=== PATIENT | female | born 1960 | race Caucasian/White ===

== ENCOUNTER → 2017-09-15 | Outpatient (CLI) | payer BC ==
[2017-09-15 10:12] LABS: BASO # 0.1 10^3/uL (0.0-0.2); EOS # 0.1 10^3/uL (0.0-0.50); EOS % 1.9 % (0.0-3.0); HEMATOCRIT 46.7 % (36.0-47.0); HEMOGLOBIN 15.1 g/dl (12.0-15.5); IMMATURE GRANULOCYTE % 0.4 % (0-3.0); LYMPH % 21.3 % (24.0-44.0); MEAN CORPUSCULAR HGB CONC 32.3 g/dl (32.0-36.5); MEAN CORPUSCULAR VOLUME 89.8 fl (80.0-96.0); MONO # 0.8 10^3/uL (0.0-0.8); MONO % 16.3 % (0.0-5.0); NEUTROPHILS # 2.8 10^3/uL (1.8-7.7); NEUTROPHILS % 59.1 % (36.0-66.0); PLATELET COUNT, AUTOMATED 216 10^3/uL (150-450); RED CELL DISTRIBUTION WIDTH 13.2 % (11.5-14.5); WHITE BLOOD COUNT 4.8 10^3/uL (4.0-10.0)
[2017-09-15 10:36] LABS: ANION GAP 9 MEQ/L (8-16); BLOOD UREA NITROGEN 10 MG/DL (7-18); CALCIUM LEVEL 8.6 MG/DL (8.5-10.1); CARBON DIOXIDE LEVEL 30 MEQ/L (21-32); CHLORIDE LEVEL 106 MEQ/L (98-107); CREATININE FOR GFR 0.67 MG/DL (0.55-1.30); GLOMERULAR FILTRATION RATE > 60.0 (>51); GLUCOSE, FASTING 83 MG/DL (70-100); POTASSIUM SERUM 4.2 MEQ/L (3.5-5.1); SODIUM LEVEL 145 MEQ/L (136-145)
== END ==
LOC: M LAB 09:02
DX: K09.0 Developmental odontogenic cysts (principal)
CPT/HCPCS: 71046

== ENCOUNTER → 2017-12-21 | Outpatient (CLI) | payer BC ==
[~2017-12-21] MED LIST: PROHANCE 279.3MG/ML 5ML VIAL (A9576) As Ordered
== END ==
LOC: M RAD 09:54
DX: D16.5 Benign neoplasm of lower jaw bone (principal); Z98.890 Other specified postprocedural states
CPT/HCPCS: A9576

== ENCOUNTER → 2018-03-21 | Outpatient (REF) | payer BC | LOC: M SFHCLERA 14:24 | PROVIDERS: ATTEND Nurse Practitioner Family | DX: J02.9 Acute pharyngitis, unspecified (principal) ==

== ENCOUNTER → 2018-11-01 | Outpatient (REF) | payer BC ==
[~2018-11-01] MED LIST changes: +CALC600C3 PO; +MULTCAP PO; -PROHANCE 279.3MG/ML 5ML VIAL (A9576) As Ordered
[2018-11-01 17:19] LABS: ALBUMIN 3.9 GM/DL (3.2-5.2); ALT/SGPT 22 U/L (12-78); BASO # 0.1 10^3/uL (0.0-0.2); BASO % 0.9 % (0.0-1.0); BILIRUBIN,TOTAL 0.4 MG/DL (0.2-1.0); BLOOD UREA NITROGEN 7 MG/DL (7-18); CALCIUM LEVEL 9.5 MG/DL (8.8-10.2); CARBON DIOXIDE LEVEL 28 MEQ/L (21-32); CHLORIDE LEVEL 106 MEQ/L (98-107); CHOLESTEROL LEVEL 185 MG/DL (<200); CHOLESTEROL RISK RATIO 2.151 (<5); CREATININE FOR GFR 0.63 MG/DL (0.55-1.30); EOS % 0.8 % (0.0-3.0); GLOMERULAR FILTRATION RATE > 60.0 (>45); GLUCOSE, FASTING 79 MG/DL (70-100); HDL CHOLESTEROL 86 MG/DL (>40); HEMATOCRIT 48.6 % (36.0-47.0); HEMOGLOBIN 15.5 g/dl (12.0-15.5); LDL CHOLESTEROL 84 MG/DL (<100); LYMPH # 0.7 10^3/uL (1.5-5.0); LYMPH % 13.8 % (24.0-44.0); MEAN CORPUSCULAR HEMOGLOBIN 29.9 pg (27.0-33.0); MEAN CORPUSCULAR HGB CONC 31.9 g/dl (32.0-36.5); MEAN CORPUSCULAR VOLUME 93.8 fl (80.0-96.0); MONO # 0.6 10^3/uL (0.0-0.8); MONO % 11.5 % (0.0-5.0); NEUTROPHILS # 3.9 10^3/uL (1.5-8.5); NEUTROPHILS % 72.6 % (36.0-66.0); NON-HDL-C 99 MG/DL; PLATELET COUNT, AUTOMATED 237 10^3/uL (150-450); POTASSIUM SERUM 4.7 MEQ/L (3.5-5.1); RED BLOOD COUNT 5.18 10^6/uL (4.00-5.40); SODIUM LEVEL 141 MEQ/L (136-145); TOTAL PROTEIN 6.6 GM/DL (6.4-8.2); TRIGLYCERIDES LEVEL 74 MG/DL (<150); WHITE BLOOD COUNT 5.3 10^3/uL (4.0-10.0)
== END ==
LOC: M SFHCLERA 10:08
PROVIDERS: ATTEND Nurse Practitioner Family
DX: Z00.00 Encounter for general adult medical examination without abnormal findings (principal); Z13.220 Encounter for screening for lipoid disorders

== ENCOUNTER → 2019-01-04 | Outpatient (CLI) | payer BC ==
--- NOTE | 2019-01-04 20:01 | REP ---
CT chest without contrast: Low-dose screening exam. History: Tobacco use. Comparison chest x-ray is from September 15, 2017. CT findings: There are several small air cysts scattered in the right middle and lower lobe. There is a 4 mm nodule in the left upper lobe on page 28 of 114 in series 201 of today's study. This is not visibly calcified. There is no other visible nodule or mass lesion in the lung parenchyma. Some vascular calcification is observed. The study is otherwise unremarkable. Impression: Lung RADS category II benign appearance. 4 mm nodule left upper lobe. Repeat screening CT study recommended 1 year. Electronically Signed by Norberto Harvey MD 01/05/2019 09:47 A
== END ==
LOC: M RAD 15:31
PROVIDERS: ATTEND Nurse Practitioner Family
DX: Z12.2 Encounter for screening for malignant neoplasm of respiratory organs (principal); R91.8 Other nonspecific abnormal finding of lung field; F17.219 Nicotine dependence, cigarettes, with unspecified nicotine-induced disorders

== ENCOUNTER → 2019-02-04 | Outpatient (CLI) | payer BC ==
--- NOTE | 2019-02-04 14:32 | REPMRS ---
Patient History The patient states she has not had a clinical breast exam in over a year. Family history of breast cancer at age 50 or over in paternal grandmother. Digital Woman Screen Mammo: February 04, 2019 - Exam #: [id number] Bilateral CC and MLO view(s) were taken. Technologist: Hannah Schreiber, Technologist Prior study comparison: December 21, 2012, digital woman screen mammo performed at [facility]. August 05, 2005, bilateral mammogram, performed at [facility] ([facility] FINDINGS: The breast tissue is heterogeneously dense. This may lower the sensitivity of mammography. There is a moderate amount of heterogeneously dense fibroglandular tissue which is fairly symmetric. There is no interval development of dominant mass, architectural distortion, or grouped microcalcification typical of malignancy. There has been no change in the appearance of the mammogram from the prior studies. 3-D tomosynthesis shows no additional findings. Assessment: BI-RADS/ACR category 1 mammogram. Negative Mammogram. Recommendation Routine screening mammogram of both breasts in 1 year (for women over age 40). This patient's Lifetime Breast Cancer RIsk is estimated at 4.7 %. This mammogram was interpreted with the aid of an FDA-approved computer-aided dectection system. Electronically Signed By: Kai Harvey MD 02/04/19 0208
--- NOTE | 2019-02-10 13:36 | DEXA ---
AP SPINE L1 - L4 1.003 -1.5 -0.3 LT FEMUR TOTAL 0.697 -2.5 -1.5 LT NECK 0.705 -2.4 -1.1 RT FEMUR TOTAL 0.667 -2.7 -1.7 RT NECK 0.695 -2.5 -1.2 TOTAL BODY TOTAL OTHER COMMENTS: There is low bone density of the spine and hips. The decreased density of the spine does represent a significant change. The decreased density of the left hip does represent a signature change. The decreased density of the right hip does represent a signature change. The density of the spine has decreased 19.8% since the initial exam on 06/06/1999. The spine density has decreased 5.6% since the most recent exam on 12/21/2012. The density of the left hip has decreased 29.5% since the initial exam on 06/06/1999. The density of the left hip has decreased 12.7% since the most recent exam on 12/21/2012. The density of the right hip has decreased 31.4% since the initial exam on 06/06/1999. The density of the right hip has decreased 14.5% since the most recent exam on 12/21/2012. FOLLOW-UP: Recommendation for the next bone density exam: 2 years. JARVIS
== END ==
LOC: M WHC 12:54
PROVIDERS: ATTEND Nurse Practitioner Family
DX: Z12.31 Encounter for screening mammogram for malignant neoplasm of breast (principal); Z13.820 Encounter for screening for osteoporosis

== ENCOUNTER 2019-03-07 08:37 | Day surgery (SDC) | payer BC ==
[~2019-03-07] VITALS: Ht 160 cm; Wt 40.4 kg
[~2019-03-07 08:37] MED LIST changes: +LIDOCAINE 2% INJ 100 MG/5 ML SDV (FOR ANES.) As Ordered ONE; +NS 1,000 ML IV ONE; +propofoL 200 MG/20 ML VIAL As Ordered ONE
--- NOTE | 2019-03-07 10:10 | ROOR ---
Patient Name: Tracey Rosen Procedure Date: 03/07/2019 9:31 AM Date of : 1960 Age: 58 Room: [facility] Gender: Female Note Status: Finalized Procedure: Colonoscopy Indications: High risk colon cancer surveillance: Personal history of colonic polyps Providers: Carlos Pablo MD Referring MD: Florence CELAYA Requesting Provider: Medicines: Monitored Anesthesia Care Complications: No immediate complications. Procedure: Pre-Anesthesia Assessment: - Prior to the procedure, a History and Physical was performed, and patient medications and allergies were reviewed. The patient is competent. The risks and benefits of the procedure and the sedation options and risks were discussed with the patient. All questions were answered and informed consent was obtained. Patient identification and proposed procedure were verified by the physician, the nurse and the anesthesiologist in the procedure room. Mental Status Examination: alert and oriented. Airway Examination: normal oropharyngeal airway and neck mobility. Respiratory Examination: clear to auscultation. CV Examination: normal. Prophylactic Antibiotics: The patient does not require prophylactic antibiotics. Prior Anticoagulants: The patient has taken no previous anticoagulant or antiplatelet agents. ASA Grade Assessment: II - A patient with mild systemic disease. After reviewing the risks and benefits, the patient was deemed in satisfactory condition to undergo the procedure. The anesthesia plan was to use monitored anesthesia care (MAC). Immediately prior to administration of medications, the patient was re-assessed for adequacy to receive sedatives. The heart rate, respiratory rate, oxygen saturations, blood pressure, adequacy of pulmonary ventilation, and response to care were monitored throughout the procedure. The physical status of the patient was re-assessed after the procedure. The Colonoscope was introduced through the anus and advanced to the terminal ileum, with identification of the appendiceal orifice and IC valve. The colonoscopy was performed without difficulty. The patient tolerated the procedure well. The quality of the bowel preparation was fair except the ascending colon was poor. The terminal ileum, ileocecal valve, appendiceal orifice, and rectum were photographed. Scope insertion time was 2 minutes. Scope withdrawal time was 9 minutes. The total duration of the procedure was 11 minutes. Findings: The perianal and digital rectal examinations were normal. The terminal ileum appeared normal. Four sessile polyps were found in the transverse colon and cecum. The polyps were 5 to 8 mm in size. These polyps were removed with a cold snare. Resection and retrieval were complete. Verification of patient identification for the specimen was done by the physician and nurse using the patient's name, date and medical record number. Estimated blood loss was minimal. A 12 mm polyp was found in the recto-sigmoid colon. The polyp was semi-sessile. The polyp was removed with a hot snare. Resection and retrieval were complete. Multiple small and large-mouthed diverticula were found from sigmoid to descending colon. There was no evidence of diverticular bleeding. Non-bleeding external and internal hemorrhoids were found during retroflexion. The hemorrhoids were medium-sized. Impression: - The examined portion of the ileum was normal. - Four 5 to 8 mm polyps in the transverse colon and in the cecum, removed with a cold snare. Resected and retrieved. - One 12 mm polyp at the recto-sigmoid colon, removed with a hot snare. Resected and retrieved. - Moderate diverticulosis from sigmoid to descending colon. There was no evidence of diverticular bleeding. - Non-bleeding external and internal hemorrhoids. Recommendation: - Patient has a contact number available for emergencies. The signs and symptoms of potential delayed complications were discussed with the patient. Return to normal activities tomorrow. Written discharge instructions were provided to the patient. - High fiber diet. - Continue present medications. - Await pathology results. - Repeat colonoscopy in 1 year because the bowel preparation was suboptimal and for surveillance based on pathology results. - Telephone GI clinic for pathology results in 2 weeks. - Return to GI clinic in 1 year. - Return to primary care physician. Carlos Pablo MD Carlos Pablo MD 03/07/2019 10:09:28 AM Electronically signed by Carlos Pablo MD Number of Addenda: 0 Note Initiated On: 03/07/2019 9:31 AM Estimated Blood Loss: Estimated blood loss was minimal.
[2019-03-07 10:46] VITALS: BP 115/65
== END 2019-03-07 10:49 | disposition home or self-care (01) ==
LOC: M OPP 08:37
PROVIDERS: ATTEND Internal Medicine Gastroenterology
DX: Z12.11 Encounter for screening for malignant neoplasm of colon (principal); Z86.010 Personal history of colon polyps; K64.8 Other hemorrhoids; D12.3 Benign neoplasm of transverse colon; D12.0 Benign neoplasm of cecum; D12.7 Benign neoplasm of rectosigmoid junction; K57.30 Diverticulosis of large intestine without perforation or abscess without bleeding; F17.210 Nicotine dependence, cigarettes, uncomplicated

== ENCOUNTER 2019-06-15 11:02 | Emergency (ER) | payer BC ==
[~2019-06-15] VITALS: Ht 160 cm; Wt 41.1 kg
[~2019-06-15 11:02] MED LIST changes: -LIDOCAINE 2% INJ 100 MG/5 ML SDV (FOR ANES.) As Ordered ONE; -NS 1,000 ML IV ONE; -propofoL 200 MG/20 ML VIAL As Ordered ONE
[2019-06-15 11:34] LABS: BASO % 0.6 % (0.0-1.0); EOS # 0.1 10^3/uL (0.0-0.5); EOS % 1.4 % (0.0-3.0); HEMATOCRIT 52.6 % (36.0-47.0); HEMOGLOBIN 16.8 g/dl (12.0-15.5); LYMPH # 1.3 10^3/uL (1.5-5.0); LYMPH % 18.1 % (24.0-44.0); MEAN CORPUSCULAR HEMOGLOBIN 29.2 pg (27.0-33.0); MEAN CORPUSCULAR HGB CONC 31.9 g/dl (32.0-36.5); MEAN CORPUSCULAR VOLUME 91.5 fl (80.0-96.0); MONO # 0.9 10^3/uL (0.0-0.8); MONO % 12.4 % (0.0-5.0); NEUTROPHILS # 4.8 10^3/uL (1.5-8.5); NEUTROPHILS % 67.1 % (36.0-66.0); PLATELET COUNT, AUTOMATED 251 10^3/uL (150-450); RED BLOOD COUNT 5.75 10^6/uL (4.00-5.40); WHITE BLOOD COUNT 7.2 10^3/uL (4.0-10.0)
[2019-06-15] MEDS ORDERED: ONDANSETRON 4MG/2ML VIAL IV ONE (12:00)
[2019-06-15] MEDS ORDERED: NS 500 ML IV ONE (12:00)
[2019-06-15 12:04] LABS: ALBUMIN 3.7 GM/DL (3.2-5.2); ALT/SGPT 28 U/L (12-78); BILIRUBIN,DIRECT 0.2 MG/DL (0.0-0.2); BILIRUBIN,TOTAL 0.6 MG/DL (0.2-1.0); BLOOD UREA NITROGEN 9 MG/DL (7-18); CALCIUM LEVEL 9.7 MG/DL (8.8-10.2); CARBON DIOXIDE LEVEL 29 MEQ/L (21-32); CHLORIDE LEVEL 103 MEQ/L (98-107); CREATININE FOR GFR 0.74 MG/DL (0.55-1.30); GLOMERULAR FILTRATION RATE > 60.0 (>45); GLUCOSE, FASTING 107 MG/DL (70-100); LIPASE 147 U/L (73-393); POTASSIUM SERUM 4.9 MEQ/L (3.5-5.1); SODIUM LEVEL 138 MEQ/L (136-145)
[2019-06-15] MEDS: GASTROGRAFIN SOLUTION 30ML PO SCH ×2 (12:36→13:13)
[2019-06-15 12:52] LABS: INR 0.96; PARTIAL THROMBOPLASTIN TIME 30.1 SECONDS (25.0-38.4); PROTHROMBIN TIME 12.5 SECONDS (11.8-14.0)
[2019-06-15] MEDS ORDERED: ISOVUE-370 76% 100ML VIAL As Ordered ONE (13:58)
[2019-06-15] MEDS ORDERED: ONDA4TAB6 PO (14:39)
--- NOTE | 2019-06-15 15:13 | REP ---
REASON: Right lower quadrant pain. COMPARISON: None. CONTRAST: 100 mL of Isovue 370. The lung bases are clear. The liver, gallbladder, spleen, pancreas, adrenal glands and kidneys are within normal limits. Incidental note is made of subcentimeter sized cyst in the medial segment of the left lobe of the liver. The abdominal aorta and paraaortic regions are within normal limits for the patient's age. Calcific atherosclerotic change is seen in abdominal aorta. There is no free fluid or free air in the abdomen or pelvis. The intra-abdominal and intrapelvic bowel loops and their mesenteries are within normal limits. There are a few scattered gas-filled nondilated small bowel loops in the lower abdomen and within the pelvis in a nonspecific fashion. There is no evidence of an intra-abdominal or intrapelvic mass or adenopathy. The patient is status post appendectomy. Bone window technique throughout the exam shows the osseous structures to be within normal limits. IMPRESSION: CT findings are within normal limits. There is a possible slight small bowel ileus. Electronically Signed by Juan Garnett DO 06/15/2019 03:31 P
[2019-06-15 15:36] VITALS: BP 115/67
== END 2019-06-15 15:37 | disposition home or self-care (01) ==
LOC: M ED 11:02
DX: K56.7 Ileus, unspecified (principal); R11.0 Nausea; K57.92 Diverticulitis of intestine, part unspecified, without perforation or abscess without bleeding; F17.200 Nicotine dependence, unspecified, uncomplicated; Z79.899 Other long term (current) drug therapy
CPT/HCPCS: 74177; 80048; 80076; 81001; 83605; 83690; 85025; 85610; 85730; 87040; 96374; 99284; J2405; Q9963; Q9967

== ENCOUNTER → 2019-06-21 | Outpatient (REF) | payer BC ==
[~2019-06-21] MED LIST changes: +ONDA4TAB6 PO
[2019-06-21 11:03] LABS: AMORPHOUS SEDIMENT LARGE (NEGATIVE); APPEARANCE, URINE TURBID (CLEAR); BACTERIA, URINE AUTO NEGATIVE (NEGATIVE); BILIRUBIN, URINE AUTO NEGATIVE (NEGATIVE); BLOOD, URINE BLOOD 1+ (NEGATIVE); COLOR, URINE AMBER (YELLOW); GLUCOSE, URINE (UA) AUTO NEGATIVE (NEGATIVE); KETONE, URINE AUTO NEGATIVE (NEGATIVE); LEUKOCYTE ESTERASE, URINE AUTO NEGATIVE (NEGATIVE); MUCUS, URINE SMALL (NEGATIVE); NITRITE, URINE AUTO NEGATIVE (NEGATIVE); PROTEIN, URINE AUTO NEGATIVE (NEGATIVE); RBC, URINE AUTO 0 /HPF (0-3); SPECIFIC GRAVITY URINE AUTO 1.013 (1.002-1.035); SQUAMOUS EPITHELIAL CELL UR AU 1 /HPF (0-6); UROBILINOGEN, URINE AUTO 0.2 mg/dL (0.0-2.0); WBC, URINE AUTO 0 /HPF (0-3)
[2019-06-21 11:04] LABS: BASO # 0.1 10^3/uL (0.0-0.2); BASO % 0.9 % (0.0-1.0); EOS # 0.1 10^3/uL (0.0-0.5); EOS % 1.5 % (0.0-3.0); HEMATOCRIT 48.5 % (36.0-47.0); HEMOGLOBIN 15.3 g/dl (12.0-15.5); LYMPH % 15.7 % (24.0-44.0); MEAN CORPUSCULAR HGB CONC 31.5 g/dl (32.0-36.5); MEAN CORPUSCULAR VOLUME 91.9 fl (80.0-96.0); MONO # 0.9 10^3/uL (0.0-0.8); MONO % 13.4 % (0.0-5.0); NEUTROPHILS # 4.5 10^3/uL (1.5-8.5); NEUTROPHILS % 68.2 % (36.0-66.0); PLATELET COUNT, AUTOMATED 259 10^3/uL (150-450); RED BLOOD COUNT 5.28 10^6/uL (4.00-5.40); WHITE BLOOD COUNT 6.6 10^3/uL (4.0-10.0)
== END ==
LOC: M SFHCLERA 08:11
PROVIDERS: ATTEND Family Medicine
DX: R31.9 Hematuria, unspecified (principal); D75.1 Secondary polycythemia

== ENCOUNTER → 2019-07-05 | Outpatient (REF) | payer BC ==
[2019-07-05 15:03] LABS: FREE T4 1.25 NG/DL (0.76-1.46); THYROID STIMULATING HORMONE 0.709 uIU/ML (0.358-3.740)
[2019-07-06 07:49] LABS: H PYLORI QUALITATIVE IgG NEGATIVE (NEGATIVE)
== END ==
LOC: M SFHCPLAZ 12:44
PROVIDERS: ATTEND Physician Assistant Medical
DX: R11.2 Nausea with vomiting, unspecified (principal); R10.13 Epigastric pain

== ENCOUNTER → 2019-07-28 | Outpatient (CLI) | payer BC ==
[~2019-07-28] MED LIST changes: +E-Z-GAS II EFFERVESCENT PACKET (SODIUM BICARB./CITRIC ACID/SIMETHICONE) As Ordered ONE; +E-Z-HD 98% w/w 340GM SUSP BTL As Ordered ONE; +E-Z-PAQUE 96% w/w SUSP 176GM BTL As Ordered ONE
--- NOTE | 2019-08-10 16:53 | REP ---
UPPER GI AIR CONTRAST AND SMALL BOWEL FOLLOW THROUGH: The procedure was performed under the direct supervision of Dr. Sarkar. The images were reviewed with Dr. Sarkar. The dehydrator film shows no organomegaly or pathological masses. The intestinal gas pattern is nonspecific. There are vascular calcifications identified. Liquid barium and gas-producing granules were given in the erect position as well as liquid barium in the prone oblique position in order to perform a double-contrast upper GI examination. Additionally, liquid barium was given at the end of the examination in order to perform a small bowel follow through. The oral and pharyngeal stages of deglutition are unremarkable. Esophageal transport is prompt and efficient and there is no esophagitis or stricture, mucosal ring, or hiatal hernia. Gastroesophageal reflux is not demonstrated on this examination. Within the stomach, there are prominent areas of gastricum which may represent early gastritis. There is no cyril ulcer identified. The stomach is otherwise unremarkable. In the pylorus, there is an ulcer. There are thickened folds in the duodenum which likely represent duodenitis. There is a diverticulum identified in the distal portion of the duodenum. The visualized portions of the proximal small bowel appears normal in course and caliber. The barium column was followed to the small bowel to the level of the terminal ileum. Small bowel transit time is approximately 3 hours. During fluoroscopy time, gentle palpation shows all loops are freely movable and pliable. There are no fixed triangulated loops. There is a diverticulum seen in the distal portion of the duodenum. The small bowel mucosal pattern is normal in course and caliber. There is no transition to suggest a partial small bowel obstruction. Spot filming of the terminal ileus shows it to be unremarkable. IMPRESSION: 1. Prominent area of gastricum in the stomach which may represent gastritis. There is no cyril ulcer identified. 2. In the pylorus, there is an ulcer identified. There are thickened folds in the duodenum likely representing duodenitis. There is a diverticulum identified in the distal portion of the duodenum. 4.3 minutes of fluoroscopy time was utilized for this procedure. Unreviewed MTDD
== END ==
LOC: M RAD 07:45
PROVIDERS: ATTEND Physician Assistant Medical
DX: R10.84 Generalized abdominal pain (principal); K25.9 Gastric ulcer, unspecified as acute or chronic, without hemorrhage or perforation; K57.50 Diverticulosis of both small and large intestine without perforation or abscess without bleeding

== ENCOUNTER → 2019-12-13 | Outpatient (CLI) | payer BC ==
[~2019-12-13] MED LIST changes: -E-Z-GAS II EFFERVESCENT PACKET (SODIUM BICARB./CITRIC ACID/SIMETHICONE) As Ordered ONE; -E-Z-HD 98% w/w 340GM SUSP BTL As Ordered ONE; -E-Z-PAQUE 96% w/w SUSP 176GM BTL As Ordered ONE; +OMEP-221 PO
--- NOTE | 2019-12-13 11:23 | REP ---
INDICATION: CHEST PAIN ON BREATHING, TOBACCO USE COMPARISON: 09/15/2017. TECHNIQUE: PA/Lateral FINDINGS: Lungs: Clear, no infiltrate. Heart: Normal in size. Mediastinum: Mediastinal silhouette unremarkable. Pleural angles: Unremarkable.. Bones and soft tissues: Unremarkable. There is mild calcification of the thoracic aorta. There is mild biapical pleural thickening. IMPRESSION: No acute pulmonary disease. <Electronically signed by Misael Sarkar > 12/13/19 [id number]
== END ==
LOC: M WUC 11:05
PROVIDERS: ATTEND Physician Assistant
DX: R07.1 Chest pain on breathing (principal); Z72.0 Tobacco use

== ENCOUNTER → 2019-12-29 | Outpatient (CLI) | payer BC | LOC: M LABSMTC 12:01 | PROVIDERS: ATTEND Anesthesiology | DX: Z20.828 Contact with and (suspected) exposure to other viral communicable diseases (principal) ==

== ENCOUNTER 2020-01-03 11:32 | Day surgery (SDC) | payer BC ==
[~2020-01-03] VITALS: Ht 160 cm; Wt 39.0 kg
[~2020-01-03 11:32] MED LIST changes: +NS 1,000 ML IV ONE
[2020-01-03] MEDS ORDERED: LIDOCAINE 2% 100MG/5ML SDV (FOR ANES.) As Ordered ONE (11:46)
[2020-01-03] MEDS ORDERED: propofoL 200 MG/20 ML VIAL As Ordered ONE (11:46)
[2020-01-03] MEDS ORDERED: fentaNYL 100 MCG/2 ML INJECTION (J3010) As Ordered ONE (13:02)
[2020-01-03] MEDS ORDERED: ePHEDrine SULFATE 25 MG/5 ML(5MG/ML) SYRINGE As Ordered ONE (13:27)
[2020-01-03 13:59] VITALS: BP 105/61
--- NOTE | 2020-01-03 14:15 | ROOR ---
Patient Name: Tracey Rosen Procedure Date: 01/03/2020 1:18 PM Date of : 1960 Age: 59 Room: [facility] Gender: Female Note Status: Finalized Procedure: Upper GI endoscopy Indications: Abnormal UGI series Providers: Carlos Pablo MD Referring MD: Florence CELAYA Requesting Provider: Medicines: Monitored Anesthesia Care Complications: No immediate complications. Procedure: Pre-Anesthesia Assessment: - Prior to the procedure, a History and Physical was performed, and patient medications and allergies were reviewed. The patient is competent. The risks and benefits of the procedure and the sedation options and risks were discussed with the patient. All questions were answered and informed consent was obtained. Patient identification and proposed procedure were verified by the physician, the nurse and the anesthesiologist in the procedure room. Mental Status Examination: alert and oriented. Airway Examination: normal oropharyngeal airway and neck mobility. Respiratory Examination: clear to auscultation. CV Examination: normal. Prophylactic Antibiotics: The patient does not require prophylactic antibiotics. Prior Anticoagulants: The patient has taken no previous anticoagulant or antiplatelet agents. ASA Grade Assessment: II - A patient with mild systemic disease. After reviewing the risks and benefits, the patient was deemed in satisfactory condition to undergo the procedure. The anesthesia plan was to use monitored anesthesia care (MAC). Immediately prior to administration of medications, the patient was re-assessed for adequacy to receive sedatives. The heart rate, respiratory rate, oxygen saturations, blood pressure, adequacy of pulmonary ventilation, and response to care were monitored throughout the procedure. The physical status of the patient was re-assessed after the procedure. The Endoscope was introduced through the mouth, and advanced to the second part of duodenum. The upper GI endoscopy was accomplished without difficulty. The patient tolerated the procedure well. Findings: LA Grade B (one or more mucosal breaks greater than 5 mm, not extending between the tops of two mucosal folds) esophagitis with no bleeding was found in the lower third of the esophagus. Biopsies were taken with a cold forceps for histology. Verification of patient identification for the specimen was done by the physician and nurse using the patient's name, date and medical record number. Estimated blood loss was minimal. One partially obstructing non-bleeding cratered gastric ulcer of moderate to significant severity with a clean ulcer base (Vijay Class III) was found in the prepyloric region of the stomach. The lesion was 20 mm in largest dimension. There is no evidence of perforation. Biopsies were taken with a cold forceps for histology. Verification of patient identification for the specimen was done by the physician and nurse using the patient's name, date and medical record number. Estimated blood loss was minimal. The duodenal bulb and second portion of the duodenum were normal. Impression: - LA Grade B reflux esophagitis. Rule out Otero's esophagus. Biopsied. - Partially obstructing non-bleeding gastric ulcer with a clean ulcer base (Vijay Class III). There is no evidence of perforation. Biopsied. - Normal duodenal bulb and second portion of the duodenum. Recommendation: - Patient has a contact number available for emergencies. The signs and symptoms of potential delayed complications were discussed with the patient. Return to normal activities tomorrow. Written discharge instructions were provided to the patient. - Low residue diet. - Continue present medications. - Use Protonix (pantoprazole) 40 mg PO twice daily - to be taken in morning (1/2 hour before breakfast) and at bedtime ( atleast 3 hours after last meal) for 6 weeks. - Telephone GI clinic for pathology results in 1 week. - Return to primary care physician. Procedure Code(s): --- Professional --- 19664, Esophagogastroduodenoscopy, flexible, transoral; with biopsy, single or multiple Diagnosis Code(s): --- Professional --- K21.0, Gastro-esophageal reflux disease with esophagitis K25.9, Gastric ulcer, unspecified as acute or chronic, without hemorrhage or perforation R93.3, Abnormal findings on diagnostic imaging of other parts of digestive tract CPT copyright 2019 [employer]. All rights reserved. The codes documented in this report are preliminary and upon radio engineer review may be revised to meet current compliance requirements. Carlos Pablo MD Carlos Pablo MD 01/03/2020 2:14:20 PM Electronically signed by Carlos Pablo MD Number of Addenda: 0 Note Initiated On: 01/03/2020 1:18 PM Estimated Blood Loss: Estimated blood loss was minimal.
== END 2020-01-03 14:20 | disposition home or self-care (01) ==
LOC: M OPP 11:32
PROVIDERS: ATTEND Internal Medicine Gastroenterology
DX: K21.00 Gastro-esophageal reflux disease with esophagitis, without bleeding (principal); K25.9 Gastric ulcer, unspecified as acute or chronic, without hemorrhage or perforation; R93.3 Abnormal findings on diagnostic imaging of other parts of digestive tract; C16.9 Malignant neoplasm of stomach, unspecified; F17.210 Nicotine dependence, cigarettes, uncomplicated
CPT/HCPCS: 43239; 88305; J3010

== ENCOUNTER → 2020-01-25 | Outpatient (CLI) | payer BC ==
[~2020-01-25] MED LIST changes: +GASTROGRAFIN SOLUTION 30ML (Q9963) As Ordered ONE; +ISOVUE-370 76% 100ML VIAL As Ordered ONE; -NS 1,000 ML IV ONE
--- NOTE | 2020-01-25 16:54 | REP ---
INDICATION: MAL NEOPLASM OF PYLORIC ANTRUM. COMPARISON: 01/04/2019. TECHNIQUE: CT of the chest with IV contrast. FINDINGS: Six there are occasional small bulla scattered throughout both lung garrison. No lung masses or nodules are identified. There are no infiltrates or pleural effusions. There is no mediastinal, hilar or axillary lymph node enlargement. The thoracic aorta is unremarkable. Cardiac size is normal. There is no pericardial effusion. There are no lytic, blastic or destructive skeletal changes. IMPRESSION: Occasional small bowl are noted scattered throughout the lung garrison. Otherwise, essentially negative CT study of the chest. <Electronically signed by Misael Stephens > 01/25/20 [id number]
--- NOTE | 2020-01-25 17:07 | REP ---
INDICATION: MAL NEOPLASM OF PYLORIC ANTRUM. COMPARISON: Abdomen and pelvis CT with IV and bowel contrast dated 06/15/2019. TECHNIQUE: Abdomen and pelvis CT with IV and bowel contrast. FINDINGS: The stomach is markedly distended. This is similar to the prior study. There is a large volume of ingested material as well as ingested radiopaque contrast for the CT within the stomach. There is a collection of small rectangular shape radiopacities in the dependent portion of the stomach, possibly ingested capsules or tablets. Radiopaque contrast is also identified in small bowel loops indicating that there is no complete obstruction of the gastric outlet per. The contrast has not traversed into the colon at the time of scanning. There is no small bowel distention. The hepatic parenchyma is homogeneous. The gallbladder, pancreas and spleen are normal size and unremarkable. The adrenals are unremarkable. The right and left kidneys are unremarkable. The abdominal aorta is unremarkable. There is no periaortic adenopathy or mass. The bowel loops are unremarkable. There is a minimal volume of intraperitoneal and extraperitoneal body fat. Pelvis: There is a hysterectomy. The vaginal cuff and adnexa are unremarkable. The bladder is unremarkable. There is no pelvic ascites or adenopathy. There are no lytic, blastic or destructive skeletal changes. IMPRESSION: Marked gastric distention, unchanged from the prior study. There is no gastric outlet obstruction however, there is a large volume of ingested material including probable ingested capsules or tablets within the stomach. There is no adenopathy, ascites or mass. There is no bowel distention or obstruction. Otherwise, negative CT of the abdomen and pelvis. <Electronically signed by Misael Stephens > 01/25/20 [id number]
== END ==
LOC: M RAD 12:17
PROVIDERS: ATTEND Internal Medicine Gastroenterology
DX: C16.3 Malignant neoplasm of pyloric antrum (principal)
CPT/HCPCS: 71260; 74177; Q9963; Q9967

== ENCOUNTER 2020-02-21 12:51 | Emergency (ER) | payer BC ==
[~2020-02-21] VITALS: Ht 160 cm; Wt 38.9 kg
[~2020-02-21 12:51] MED LIST changes: -GASTROGRAFIN SOLUTION 30ML (Q9963) As Ordered ONE; -ISOVUE-370 76% 100ML VIAL As Ordered ONE
[2020-02-21 12:52] VITALS: BP 114/62
[2020-02-23] MEDS ORDERED: OXYC1TAB23 PO (08:04)
== END 2020-02-21 16:59 | disposition home or self-care (01) ==
LOC: M ED 12:51
DX: K94.20 Gastrostomy complication, unspecified (principal); Z79.899 Other long term (current) drug therapy; F17.210 Nicotine dependence, cigarettes, uncomplicated

== ENCOUNTER → 2020-03-05 | Outpatient (CLI) | payer BC ==
[~2020-03-05] MED LIST changes: +DEXA4TA PO; +LIDOCAINE 1% MDV 20ML VIAL As Ordered ONE; +MIDAZOLAM INJ 2MG/2ML VIAL (J2250 PER 1MG) As Ordered ONE; +ONDA8TAB10 PO; +OXYC1TAB23 PO; +PROC10TA4 PO; +ceFAZolin 1GM VIAL (J0690 PER 500MG) As Ordered ONE; +diphenhydrAMINE 50MG/ML VIAL (J1200) As Ordered ONE; +fentaNYL 100 MCG/2 ML INJECTION (J3010) As Ordered ONE
--- NOTE | 2020-03-05 12:15 | IRHP ---
[facility] IR Pre-Procedure H & P General Date of Service: Mar 05, 2020 Procedure: Same Day Surgery Interval History and Physical I have seen the patient and reviewed last H & P performed within 30 days. There is no significant interval change. History of Present Illness Chief Complaint The patient is a 59-year-old female admitted with a reason for visit of Gastric Ca. PRE-PROCEDURE DIAGNOSIS: gastric cancer HEART: normal rate. LUNGS: normal breathing at rest. ASA Classification ASA Classification: III-Severe systemic dis. Mallampati Score: II NPO: Yes Problems with prior sedation: No Obstructive Sleep Apnea: No Plan moderate sedation Allergies Coded Allergies: No Known Allergies (Unverified , 03/03/19) Home Medications Scheduled Omeprazole (Omeprazole), 40 MG PO BID, (Reported) Scheduled PRN Oxycodone HCl/Acetaminophen (Oxycodone-Acetaminophen 5-325), Unknown Dose PO TIDP PRN for pain, (Reported) VS, I&O, 24H, Fishbone Vital Signs/I&O Vital Signs Date Time Temp Pulse Resp B/P (MAP) Pulse Ox O2 Delivery O2 Flow Rate FiO2 03/05/20 12:06 98.9 64 18 100 Room Air TERRY DESAI MD Mar 05, 2020 12:15
[2020-03-05 15:07] VITALS: BP 110/60
--- NOTE | 2020-03-08 10:01 | POST-OPPD ---
Postoperative Procedure Note Date Of Procedure: Mar 05, 2020 Time Of Procedure: 16:00 IR Ultrasound and fluoroscopy guided port placement IR Ultrasound of the neck. IR Moderate sedation. Clinical indication: Gastric cancer. Physician: Dr. Medeiros. Procedure: The patient was advised of the benefits, risks, and alternatives of the procedure and informed consent was obtained. A time-out was performed with verification of the patient's name, MRN, site of procedure and type of procedure to be performed. The patient was positioned in the supine position on the angiographic table. The site was prepped and draped in the usual sterile fashion. Moderate sedation was performed by the physician including the presence of an independent trained RN who assisted and monitored the patient's level of consciousness and physiologic status. Following the administration of fentanyl and Versed , the physician spent 45 minutes of continuous face to face time with the patient. Ultrasound of the neck reveals a patent and compressible right internal jugular vein. A chocolate finisher operator radiograph reveals no gross abnormality. The neck and anterior chest wall were anesthetized with lidocaine. The right internal jugular vein was accessed using a microintroducer needle under ultrasound guidance, via a lateral approach. An 018 wire was advanced into the superior vena cava, the needle was removed and a microsheath was placed. An Amplatz wire was then passed into the inferior vena cava. An incision at the internal jugular vein access site and anterior chest wall were made using a scalpel. An incision was made at the anterior chest wall. A small pocket was created using a combination of blunt and sharp dissection. A tunneling device was then used to pass the catheter from the pocket to the neck puncture site. An 8- Maltese Angio Traction Smart power port was then positioned in the pocket. The catheter was then measured and cut. The introducer sheath was exchanged for a peel-away sheath. The catheter was passed through the peel-away sheath into the internal jugular vein and the peel-away sheath was removed. The port tip was positioned at the cavoatrial junction. The port was then accessed with a Sosa needle. The port flushes and aspirates well. The puncture site in the neck was closed. The chest wall incision was then closed with 2-0 Vicryl and 4-0 Monocryl. Glue and Steri- Strips were applied. A sterile dressing was then applied. The patient tolerated the procedure well and was returned to the PRU in stable condition. Estimated blood loss: <5 ml. Complications: None. Conclusion: 1. Successful placement of an 8-Maltese Angio dynamics Smart power port via the right internal jugular vein. The port is ready for immediate use. 2. Patient to follow up in IR clinic in 2 weeks. Thank you for this referral. TERRY MEDEIROS MD Mar 08, 2020 10:01
== END ==
LOC: M IRPRO 11:41
PROVIDERS: ATTEND Specialist
DX: C16.9 Malignant neoplasm of stomach, unspecified (principal)
CPT/HCPCS: 36561; 99152; 99153; C1769; C1788; C1894; J0690; J1200; J1642; J1644; J2250; J3010

== ENCOUNTER → 2020-03-20 | Outpatient (POV) | payer BC ==
[~2020-03-20] MED LIST changes: -LIDOCAINE 1% MDV 20ML VIAL As Ordered ONE; -MIDAZOLAM INJ 2MG/2ML VIAL (J2250 PER 1MG) As Ordered ONE; -ceFAZolin 1GM VIAL (J0690 PER 500MG) As Ordered ONE; -diphenhydrAMINE 50MG/ML VIAL (J1200) As Ordered ONE; -fentaNYL 100 MCG/2 ML INJECTION (J3010) As Ordered ONE
--- NOTE | 2020-03-22 14:44 | IRPN ---
[facility] IR Progress Note IR Progress Note DATE: Mar 20, 2020 Patient agreed to this telephone follow-up. I spent 5 minutes talking to the patient. FOLLOW-UP: Status post port placement. Patient states she is doing well, the port has been used without any issues. Patient denies fevers, chills, pain, redness or discharge at site. ON EXAMINATION: No video on patient side. IMPRESSION: Doing well status post port placement. No further follow-up scheduled unless initiated by patient and/or referring provider. Thank you for this referral Allergies Coded Allergies: No Known Allergies (Unverified , 03/03/19) TERRY DESAI MD Mar 22, 2020 14:44
== END ==
LOC: M TMIRPOV 10:04
PROVIDERS: ATTEND Radiology Diagnostic Radiology
DX: Z45.2 Encounter for adjustment and management of vascular access device (principal)

== ENCOUNTER → 2020-08-31 | Outpatient (REF) | payer BC ==
[~2020-08-31] MED LIST changes: +NYST50SS PO
== END ==
LOC: M LAB REF 19:54
PROVIDERS: ATTEND Nurse Practitioner Family
DX: M54.9 Dorsalgia, unspecified (principal)

== ENCOUNTER → 2020-08-31 | Outpatient (CLI) | payer BC ==
--- NOTE | 2020-08-31 19:47 | REP ---
INDICATION: DORSALGIA, UNSPECIFIED. COMPARISON: CT chest with bone windows 01/25/2020 TECHNIQUE: Three views FINDINGS: There is an indwelling right jugular Zabidn-R-Jcwi catheter with tip in the distal SVC near the right atrium. This is new from the previous CT. The pedicles, spinous and transverse processes along with visible posterior rib articulations and medial clavicles were all unremarkable. Paraspinal lines intact. Few calcifications in the aortic arch without aneurysm. The cervicothoracic junction is unremarkable the thoracic vertebral bodies and disc spaces are grossly intact with no compression deformity or destructive lesions. There are a few minor degenerative changes in some of the mid and lower thoracic endplates, stable in appearance. No kyphosis or scoliosis of the thoracic levels. IMPRESSION: 1. No plain film evidence of bony destructive lesion, compression fracture, new thoracic kyphosis or scoliosis nor other acute bony abnormality in the visualized thoracic spine. There is a new indwelling right jugular port catheter since the chest CT of 01/25/2020. <Electronically signed by J Luis Bonner > 08/31/201942
== END ==
LOC: M RAD 17:57
PROVIDERS: ATTEND Nurse Practitioner Family
DX: M54.9 Dorsalgia, unspecified (principal)

== ENCOUNTER 2020-09-07 04:33 | Emergency (ER) | payer BC ==
[~2020-09-07] VITALS: Ht 160 cm; Wt 37.6 kg
[2020-09-07 05:45] LABS: HEMATOCRIT 44.5 % (36.0-47.0); MEAN CORPUSCULAR HEMOGLOBIN 27.2 pg (27.0-33.0); MEAN CORPUSCULAR HGB CONC 31.5 g/dl (32.0-36.5); MEAN CORPUSCULAR VOLUME 86.4 fl (80.0-96.0); PLATELET COUNT, AUTOMATED 176 10^3/uL (150-450); RED BLOOD COUNT 5.15 10^6/uL (4.00-5.40); WHITE BLOOD COUNT 16.7 10^3/uL (4.0-10.0)
[2020-09-07 06:06] LABS: ATYPICAL LYMPH 1 % (0-5); LYMPHOCYTES 2 % (16-44); MONOCYTES 3 % (0-5); NEUTROPHILS 89 % (28-66)
[2020-09-07 06:07] LABS: ANISOCYTOSIS 1+; PLATELET ESTIMATE NORMAL (NORMAL)
[2020-09-07 06:11] LABS: ALBUMIN 3.6 GM/DL (3.2-5.2); ALT/SGPT 26 U/L (12-78); BILIRUBIN,DIRECT 0.2 MG/DL (0.0-0.2); BILIRUBIN,TOTAL 0.4 MG/DL (0.2-1.0); BLOOD UREA NITROGEN 9 MG/DL (7-18); CALCIUM LEVEL 8.7 MG/DL (8.8-10.2); CARBON DIOXIDE LEVEL 29 MEQ/L (21-32); CHLORIDE LEVEL 95 MEQ/L (98-107); CK-MB VALUE MASS < 1.0 NG/ML (<3.6); CPK CREATINE PHOSPHOKINASE 41 U/L (26-192); CREATININE FOR GFR 0.45 MG/DL (0.55-1.30); GLOMERULAR FILTRATION RATE > 60.0 (>45); GLUCOSE, FASTING 97 MG/DL (70-100); LIPASE 140 U/L (73-393); MB/CK RELATIVE INDEX 2.44 (< OR =4); POTASSIUM SERUM 3.9 MEQ/L (3.5-5.1); SODIUM LEVEL 133 MEQ/L (136-145); TOTAL PROTEIN 6.9 GM/DL (6.4-8.2); TROPONIN I < 0.02 NG/ML (< 0.10)
[2020-09-07] MEDS ORDERED: NS 1,000 ML IV ONE (06:20)
[2020-09-07] MEDS ORDERED: ISOVUE-370 76% 100ML VIAL As Ordered ONE (06:28)
[2020-09-07] MEDS ORDERED: ONDANSETRON 4MG/2ML VIAL IV ONE (06:30)
[2020-09-07] MEDS ORDERED: MORPHINE 2 MG/ML 1ML VIAL (J2270) IV ONE (08:30)
--- NOTE | 2020-09-07 08:53 | REPVR ---
PROCEDURE INFORMATION: Exam: CT Abdomen And Pelvis With Contrast Exam date and time: 09/07/2020 6:20 AM Age: 60 years old Clinical indication: Abdominal pain; Generalized; Patient HX: S/P chemo RX; Additional info: Gastric cancer, loose stool, RO obstruction, upper abd pain TECHNIQUE: Imaging protocol: Computed tomography of the abdomen and pelvis with contrast. Radiation optimization: All CT scans at this facility use at least one of these dose optimization techniques: automated exposure control; mA and/or kV adjustment per patient size (includes targeted exams where dose is matched to clinical indication); or iterative reconstruction. Contrast material: ISO; Contrast volume: 100 ml; Contrast route: INTRAVENOUS (IV); COMPARISON: CT ABD PELVIS WITH CONTRAST 01/25/2020 2:13 PM FINDINGS: Tubes, catheters and devices: A percutaneous feeding tube within likely jejunal segment left upper quadrant. Liver: Small cyst left hepatic lobe medial segment measures 0.7 cm. Gallbladder and bile ducts: Normal. No calcified stones. No ductal dilation. Pancreas: Normal. No ductal dilation. Spleen: Normal. No splenomegaly. Adrenal glands: Normal. No mass. Kidneys and ureters: Normal. No hydronephrosis. Stomach and bowel: Surgical changes in the left upper quadrant at the level of the stomach. Spiculated prominent pattern of multiple small bowel loops left and central abdomen as well as central pelvis. There is additional surgical anastomosis related to small bowel in the left abdomen. Limited delineation of the colon may also reflect areas of colonic wall thickening. Appendix: No evidence of appendicitis. The appendix is not visualized. Intraperitoneal space: Minimal free fluid in the pelvis. Vasculature: Prominent calcification and irregularity of the abdominal aorta. Lymph nodes: Unremarkable. No enlarged lymph nodes. Urinary bladder: Unremarkable as visualized. Reproductive: Postoperative hysterectomy. Minor mesenteric congestion. Bones/joints: Degenerative change of the spine. Soft tissues: Again noted is a possible cystic change with calcification in the lateral right pelvis similar to previous. Persistent surgical metallic density in the right pelvis . IMPRESSION: 1. Postsurgical changes at the level of the stomach and small bowel left abdomen. 2. Rather diffuse spiculated pattern of small bowel mucosa without extreme dilatation suggestive of nonspecific enteritis and could not exclude partial involvement of the colon. 3. Mild mesenteric congestion and minimal free fluid in the pelvis. 4. Stable small cyst left hepatic lobe. No follow-up is required. 5. Stable cystic structure right pelvis with eccentric calcification possibly of ovarian origin. Electronically signed by: Vannesa Paul On 09/07/2020 08:53:13 AM
--- NOTE | 2020-09-07 08:55 | REP ---
INDICATION: wheezing. COMPARISON: Comparison chest x-ray December 13, 2019. TECHNIQUE: Two views.. FINDINGS: The lungs are well inflated and free of infiltrate. The pleural angles are sharp. The heart size is normal. Pulmonary vasculature is not increased. No significant bony abnormality is seen. A right-sided Czwucz-L-[id number] catheter is seen in position. EKG electrodes are noted. IMPRESSION: No acute disease.. <Electronically signed by Kai Harvey > 09/07/20 [id number]
[2020-09-07] MEDS ORDERED: HYDR-3713 PO (09:29)
[2020-09-07 10:00] VITALS: BP 110/72
--- NOTE | 2020-09-08 06:26 | ED PDOC ---
Post-Departure Follow-Up blaise feliz faxed ct abd/p for fu Karrie Smiley MD Sep 08, 2020 06:26
== END 2020-09-07 10:35 | disposition home or self-care (01) ==
LOC: M ED 04:33
DX: R10.9 Unspecified abdominal pain (principal); R11.2 Nausea with vomiting, unspecified; M54.9 Dorsalgia, unspecified; T45.1X5A Adverse effect of antineoplastic and immunosuppressive drugs, initial encounter; X58.XXXA Exposure to other specified factors, initial encounter; Y92.89 Other specified places as the place of occurrence of the external cause; C16.9 Malignant neoplasm of stomach, unspecified; K27.9 Peptic ulcer, site unspecified, unspecified as acute or chronic, without hemorrhage or perforation; F17.210 Nicotine dependence, cigarettes, uncomplicated
CPT/HCPCS: 71046; 74177; 80048; 80076; 82550; 82553; 83690; 84484; 85025; 93041; 94760; 96361; 96374; 96375; 99284; J2270; J2405; Q9967

== ENCOUNTER → 2020-10-31 | Outpatient (CLI) | payer BC ==
[~2020-10-31] MED LIST changes: +HYDR-3713 PO; +ISOVUE-370 76% 100ML VIAL As Ordered ONE; +POTA10CA32 PO
--- NOTE | 2020-11-02 07:58 | REP ---
INDICATION: ABN CT SMALL BOWEL. COMPARISON: 09/07/2020 TECHNIQUE: Axial contrast-enhanced images from the lung bases to the pubic symphysis using 100 cc Isovue 370 intravenous contrast material. . This CT examination was performed using the following dose reduction techniques: Automated exposure control, adjustment of mA and/or kv according to the patient's size, and the use of iterative reconstruction technique. FINDINGS: Evaluation is limited by generalized cachexia and lack of intraperitoneal fat. Liver demonstrates stable subcentimeter cyst in the medial left lobe. Spleen, pancreas, gallbladder, bilateral adrenal glands and kidneys are essentially normal. The patient appears to be status post partial gastrectomy. Previously noted percutaneous feeding tube has been removed. The small and large bowel is without obvious acute process although subtle inflammatory changes cannot definitively be excluded. A small amount of ascites is suggested within the lower abdomen/pelvis. There is no free air or evidence for bowel obstruction. Pelvis demonstrates normal bladder and evidence for prior hysterectomy. Stable 1.8 cm cystic structure along the right hemipelvis with adjacent calcification (series 201; images 81-89) remains stable. The osseous structures demonstrate chronic appearing changes similar to prior examination. Lung bases demonstrate stable chronic emphysematous changes. IMPRESSION: 1. The enteric system is without obvious definite acute process although evaluation is limited. There is no obstruction, focal inflammatory changes, or free air. Small amount of free fluid is nonspecific. <Electronically signed by Dustin Castaneda > 11/02/20 [id number]
== END ==
LOC: M RAD 14:37
PROVIDERS: ATTEND Nurse Practitioner Family
DX: R93.3 Abnormal findings on diagnostic imaging of other parts of digestive tract (principal); K76.89 Other specified diseases of liver
CPT/HCPCS: 74177; Q9967

== ENCOUNTER → 2021-02-18 | Outpatient (CLI) | payer BC ==
[~2021-02-18] MED LIST changes: +GASTROGRAFIN SOLUTION 30ML (Q9963) As Ordered ONE
--- NOTE | 2021-02-18 20:05 | REP ---
INDICATION: RESTAGING STOMACH CA. COMPARISON: None TECHNIQUE: Axial contrast-enhanced images from the lung bases to the pubic symphysis using 100 cc Isovue 370 intravenous contrast material. . This CT examination was performed using the following dose reduction techniques: Automated exposure control, adjustment of mA and/or kv according to the patient's size, and the use of iterative reconstruction technique. FINDINGS: Patient is again noted to be status post partial gastrectomy. Evaluation for recurrence/metastatic disease is severely limited by the lack of intraperitoneal fat and relative cachexia. Liver demonstrates stable 1 cm cyst in the left lobe. Spleen, pancreas, gallbladder, bilateral adrenal glands and kidneys are normal. The enteric system is without obvious obstruction or acute inflammatory process. Colonic diverticulosis noted without evidence for acute diverticulitis. Pelvis demonstrates normal bladder and evidence for prior hysterectomy as well as the possibility of a right adnexal benign dermoid with fluid collection and possible tooth (series 201; images 86-95) which is unchanged through 2020. No ascites. No free air. No obvious adenopathy. Atherosclerotic changes to the aorta and vasculature noted without aneurysm or dissection. Musculoskeletal structures demonstrate age-related changes without acute osseous abnormality. Lung bases demonstrate emphysematous changes without acute process. IMPRESSION: Limited examination. No definite evidence for recurrence or metastatic disease. Chronic stable findings as above. <Electronically signed by Dustin Castaneda > 02/18/212000
== END ==
LOC: M RAD 11:50
PROVIDERS: ATTEND Specialist
DX: C16.9 Malignant neoplasm of stomach, unspecified (principal); K76.89 Other specified diseases of liver
CPT/HCPCS: 74177; Q9963; Q9967

== ENCOUNTER → 2021-07-26 | Outpatient (CLI) | payer BC ==
[~2021-07-26] MED LIST changes: +ELIQ5TAB PO; -GASTROGRAFIN SOLUTION 30ML (Q9963) As Ordered ONE; -OMEP-221 PO; +OMEP40CA5 PO; +ONDA-84 PO; -ONDA8TAB10 PO; -PROC10TA4 PO; +PROC10TA5 PO
== END ==
LOC: M RAD 09:46
PROVIDERS: ATTEND Internal Medicine Hematology & Oncology
DX: C16.9 Malignant neoplasm of stomach, unspecified (principal); K76.89 Other specified diseases of liver; Z90.49 Acquired absence of other specified parts of digestive tract; N83.201 Unspecified ovarian cyst, right side; M85.89 Other specified disorders of bone density and structure, multiple sites; R93.5 Abnormal findings on diagnostic imaging of other abdominal regions, including retroperitoneum
CPT/HCPCS: 71260; 74177; Q9967

== ENCOUNTER → 2021-08-01 | Outpatient (CLI) | payer BC ==
[~2021-08-01] MED LIST changes: -ISOVUE-370 76% 100ML VIAL As Ordered ONE
== END ==
LOC: M CARPUL 10:43
PROVIDERS: ATTEND Internal Medicine Hematology & Oncology
DX: I08.2 Rheumatic disorders of both aortic and tricuspid valves (principal)

== ENCOUNTER 2021-09-24 09:56 | Day surgery (SDC) | payer BC ==
[~2021-09-24] VITALS: Ht 160 cm; Wt 36.7 kg
[~2021-09-24 09:56] MED LIST changes: +LIDOCAINE 2% 100MG/5ML SDV (FOR ANES.) As Ordered ONE; +NS 1,000 ML IV ONE; +OMEP1CAP73 PO; +fentaNYL 100 MCG/2 ML INJECTION As Ordered ONE; +propofoL 500 MG/50 ML VIAL As Ordered ONE
[2021-09-24] MEDS ORDERED: PHENYLephrine 500MCG 5ML (100MCG/ML) SYRINGE As Ordered ONE (11:49)
[2021-09-24 12:47] VITALS: BP 112/60
== END 2021-09-24 13:04 | disposition home or self-care (01) ==
LOC: M OPP 09:56
PROVIDERS: ATTEND Internal Medicine Gastroenterology
DX: Z86.010 Personal history of colon polyps (principal); Z85.028 Personal history of other malignant neoplasm of stomach; R63.4 Abnormal weight loss; K63.5 Polyp of colon; K57.30 Diverticulosis of large intestine without perforation or abscess without bleeding; K64.8 Other hemorrhoids; K44.9 Diaphragmatic hernia without obstruction or gangrene; K22.89 Other specified disease of esophagus; K31.89 Other diseases of stomach and duodenum; Z98.0 Intestinal bypass and anastomosis status; K21.9 Gastro-esophageal reflux disease without esophagitis; F17.200 Nicotine dependence, unspecified, uncomplicated; Z92.21 Personal history of antineoplastic chemotherapy; Z79.899 Other long term (current) drug therapy; Z80.3 Family history of malignant neoplasm of breast
CPT/HCPCS: 43239; 45385; 88305; 88342; J2370; J3010

== ENCOUNTER → 2021-11-19 | Outpatient (CLI) | payer BC ==
[~2021-11-19] MED LIST changes: -LIDOCAINE 2% 100MG/5ML SDV (FOR ANES.) As Ordered ONE; -NS 1,000 ML IV ONE; -fentaNYL 100 MCG/2 ML INJECTION As Ordered ONE; -propofoL 500 MG/50 ML VIAL As Ordered ONE
[2021-11-19 14:17] LABS: ALBUMIN 3.6 GM/DL (3.2-5.2); ALT/SGPT 22 U/L (12-78); BILIRUBIN,TOTAL 0.3 MG/DL (0.2-1.0); BLOOD UREA NITROGEN 17 MG/DL (7-18); CARBON DIOXIDE LEVEL 29 MEQ/L (21-32); CHLORIDE LEVEL 104 MEQ/L (98-107); CHOLESTEROL LEVEL 179 MG/DL (<200); CHOLESTEROL RISK RATIO 2.386 (<5); CREATININE FOR GFR 0.72 MG/DL (0.55-1.30); GLOMERULAR FILTRATION RATE > 60.0 (>45); GLUCOSE, FASTING 127 MG/DL (70-100); HDL CHOLESTEROL 75 MG/DL (>40); LDL CHOLESTEROL 78 MG/DL (<100); NON-HDL-C 104 MG/DL; POTASSIUM SERUM 4.9 MEQ/L (3.5-5.1); SODIUM LEVEL 136 MEQ/L (136-145); TOTAL PROTEIN 7.1 GM/DL (6.4-8.2); TRIGLYCERIDES LEVEL 131 MG/DL (<150)
== END ==
LOC: M LAB 13:08
PROVIDERS: ATTEND Family Medicine
DX: E78.5 Hyperlipidemia, unspecified (principal)

== ENCOUNTER → 2021-11-25 | Outpatient (CLI) | payer BC | LOC: M WHC 12:56 | PROVIDERS: ATTEND Family Medicine | DX: Z12.31 Encounter for screening mammogram for malignant neoplasm of breast (principal) ==

== ENCOUNTER → 2021-12-16 | Outpatient (CLI) | payer BC ==
[~2021-12-16] MED LIST changes: +ISOVUE-370 76% 100ML VIAL As Ordered ONE
== END ==
LOC: M RAD 07:54
PROVIDERS: ATTEND Internal Medicine Medical Oncology
DX: R91.8 Other nonspecific abnormal finding of lung field (principal); C16.9 Malignant neoplasm of stomach, unspecified
CPT/HCPCS: 71260; Q9967

== ENCOUNTER 2022-01-20 08:50 | Inpatient (IN) | payer BC ==
[~2022-01-20] VITALS: Ht 160 cm; Wt 41.7 kg
[~2022-01-20 08:50] MED LIST changes: -ISOVUE-370 76% 100ML VIAL As Ordered ONE; -POTA10CA32 PO; +POTA10CA33 PO
[2022-01-20] MEDS ORDERED: LIDOCAINE 1% MDV 20ML VIAL As Ordered ONE ×2 (09:11→12:59)
[2022-01-20] MEDS ORDERED: VITMTA PO (09:17)
[2022-01-20] MEDS ORDERED: ACETAMINOPHEN 325 MG TAB As Ordered ONE (11:50)
[2022-01-20] MEDS ORDERED: ACETAMINOPHEN TAB 650MG DOSE (2X325MG) PO PRN (12:05)
[2022-01-20] MEDS ORDERED: traMADol 50 MG TAB PO PRN (14:00)
[2022-01-20] MEDS ORDERED: oxyCODONE 5MG TAB PO PRN (14:00)
[2022-01-20] MEDS ORDERED: HOME MED LIST COMPLETE! XX SCH (14:55)
[2022-01-20] MEDS ORDERED: KETOROLAC 30 MG/ML 1ML VIAL IV ONE (15:00)
[2022-01-20] MEDS ORDERED: KETOROLAC 30 MG/ML 1ML VIAL As Ordered ONE (15:30)
[2022-01-20 16:30] VITALS: BP 110/61
[2022-01-20] MEDS: ALBUTEROL SULFATE 2.5 MG/0.5 ML INH NEB SOLN NEB SCH (19:47)
[2022-01-20] MEDS: DOCUSATE SODIUM 100MG CAPSULE PO SCH (20:03)
[2022-01-20] MEDS: PANTOPRAZOLE 40MG TAB (PROTONIX) PO SCH (20:03)
[2022-01-20] MEDS: oxyCODONE 5MG TAB PO PRN (20:03)
[2022-01-20 20:06] VITALS: BP 112/66
[2022-01-20] MEDS ORDERED: PANTOPRAZOLE 40MG TAB (PROTONIX) PO SCH (21:00)
[2022-01-20] MEDS: KETOROLAC 30 MG/ML 1ML VIAL IV SCH (22:41)
[2022-01-21 00:16] VITALS: BP 99/58
[2022-01-21] MEDS: ALBUTEROL SULFATE 2.5 MG/0.5 ML INH NEB SOLN NEB SCH ×4 (02:00→20:11)
[2022-01-21 04:27] VITALS: BP 92/51
[2022-01-21] MEDS: KETOROLAC 30 MG/ML 1ML VIAL IV SCH ×3 (04:35→15:20)
[2022-01-21 05:35] LABS: BASO % 0.7 % (0.0-1.0); EOS # 0.1 10^3/uL (0.0-0.5); EOS % 2.5 % (0.0-3.0); HEMATOCRIT 37.9 % (36.0-47.0); LYMPH % 24.6 % (24.0-44.0); MEAN CORPUSCULAR HEMOGLOBIN 27.3 pg (27.0-33.0); MEAN CORPUSCULAR HGB CONC 31.7 g/dl (32.0-36.5); MEAN CORPUSCULAR VOLUME 86.1 fl (80.0-96.0); MONO # 0.7 10^3/uL (0.0-0.8); MONO % 16.9 % (2.0-8.0); NEUTROPHILS # 2.2 10^3/uL (1.5-8.5); NEUTROPHILS % 55.1 % (36.0-66.0); PLATELET COUNT, AUTOMATED 202 10^3/uL (150-450)
[2022-01-21 06:02] LABS: BLOOD UREA NITROGEN 16 MG/DL (9-23); CALCIUM LEVEL 8.6 MG/DL (8.3-10.6); CARBON DIOXIDE LEVEL 27 MMOL/L (20-31); CHLORIDE LEVEL 102 MMOL/L (98-107); GLOMERULAR FILTRATION RATE > 60.0 (>45); GLUCOSE, FASTING 92 MG/DL (74-106); POTASSIUM SERUM 4.1 MMOL/L (3.5-5.1); SODIUM LEVEL 137 MMOL/L (136-145)
[2022-01-21 07:41] VITALS: BP 114/60
[2022-01-21] MEDS: DOCUSATE SODIUM 100MG CAPSULE PO SCH ×2 (08:38→20:15)
[2022-01-21] MEDS: PANTOPRAZOLE 40MG TAB (PROTONIX) PO SCH ×2 (08:38→20:15)
[2022-01-21] MEDS: ACETAMINOPHEN TAB 650MG DOSE (2X325MG) PO PRN (08:38)
[2022-01-21 11:48] VITALS: BP 105/57
[2022-01-21 16:00] VITALS: BP 115/58
[2022-01-21 20:00] VITALS: BP 105/56
[2022-01-22] VITALS: BP 107/59
[2022-01-22] MEDS: ALBUTEROL SULFATE 2.5 MG/0.5 ML INH NEB SOLN NEB SCH ×4 (02:00→19:13)
[2022-01-22 04:00] VITALS: BP 102/59
[2022-01-22 05:16] LABS: BASO % 0.5 % (0.0-1.0); EOS # 0.2 10^3/uL (0.0-0.5); EOS % 3.7 % (0.0-3.0); HEMATOCRIT 36.8 % (36.0-47.0); HEMOGLOBIN 11.7 g/dl (12.0-15.5); LYMPH # 0.7 10^3/uL (1.5-5.0); LYMPH % 16.4 % (24.0-44.0); MEAN CORPUSCULAR HEMOGLOBIN 27.3 pg (27.0-33.0); MEAN CORPUSCULAR HGB CONC 31.8 g/dl (32.0-36.5); MEAN CORPUSCULAR VOLUME 85.8 fl (80.0-96.0); MONO # 0.6 10^3/uL (0.0-0.8); MONO % 13.4 % (2.0-8.0); NEUTROPHILS # 2.9 10^3/uL (1.5-8.5); NEUTROPHILS % 65.8 % (36.0-66.0); PLATELET COUNT, AUTOMATED 186 10^3/uL (150-450); RED BLOOD COUNT 4.29 10^6/uL (4.00-5.40); WHITE BLOOD COUNT 4.3 10^3/uL (4.0-10.0)
[2022-01-22 05:56] LABS: BLOOD UREA NITROGEN 21 MG/DL (9-23); CALCIUM LEVEL 8.7 MG/DL (8.3-10.6); CARBON DIOXIDE LEVEL 27 MMOL/L (20-31); CHLORIDE LEVEL 106 MMOL/L (98-107); GLOMERULAR FILTRATION RATE > 60.0 (>45); GLUCOSE, FASTING 100 MG/DL (74-106); POTASSIUM SERUM 4.2 MMOL/L (3.5-5.1); SODIUM LEVEL 139 MMOL/L (136-145)
[2022-01-22] MEDS: oxyCODONE 5MG TAB PO PRN ×2 (07:22→20:26)
[2022-01-22 07:46] VITALS: BP 129/62
[2022-01-22] MEDS: DOCUSATE SODIUM 100MG CAPSULE PO SCH ×2 (08:10→20:22)
[2022-01-22] MEDS: PANTOPRAZOLE 40MG TAB (PROTONIX) PO SCH ×2 (08:10→20:22)
[2022-01-22] MEDS ORDERED: ENOXAPARIN 30MG/0.3ML SYRINGE (J1650 PER 10MG) SC SCH (09:00)
[2022-01-22] MEDS ORDERED: guaiFENesin 200 MG TAB PO PRN (10:15)
[2022-01-22 13:20] VITALS: BP 102/54
[2022-01-22 16:00] VITALS: BP 122/66
[2022-01-22 20:19] VITALS: BP 111/55
[2022-01-23 00:22] VITALS: BP 90/50
[2022-01-23] MEDS: ALBUTEROL SULFATE 2.5 MG/0.5 ML INH NEB SOLN NEB SCH ×4 (01:25→19:18)
[2022-01-23 04:01] VITALS: BP 105/56
[2022-01-23 05:13] LABS: BASO % 0.4 % (0.0-1.0); EOS # 0.2 10^3/uL (0.0-0.5); EOS % 3.1 % (0.0-3.0); HEMATOCRIT 34.8 % (36.0-47.0); LYMPH # 0.8 10^3/uL (1.5-5.0); LYMPH % 17.4 % (24.0-44.0); MEAN CORPUSCULAR HEMOGLOBIN 27.2 pg (27.0-33.0); MEAN CORPUSCULAR HGB CONC 31.6 g/dl (32.0-36.5); MEAN CORPUSCULAR VOLUME 85.9 fl (80.0-96.0); MONO # 0.7 10^3/uL (0.0-0.8); MONO % 14.9 % (2.0-8.0); NEUTROPHILS # 3.1 10^3/uL (1.5-8.5); PLATELET COUNT, AUTOMATED 184 10^3/uL (150-450); RED BLOOD COUNT 4.05 10^6/uL (4.00-5.40); WHITE BLOOD COUNT 4.8 10^3/uL (4.0-10.0)
[2022-01-23 06:19] LABS: BLOOD UREA NITROGEN 16 MG/DL (9-23); CALCIUM LEVEL 8.4 MG/DL (8.3-10.6); CARBON DIOXIDE LEVEL 28 MMOL/L (20-31); CHLORIDE LEVEL 107 MMOL/L (98-107); CREATININE FOR GFR 0.58 MG/DL (0.55-1.30); GLOMERULAR FILTRATION RATE > 60.0 (>45); GLUCOSE, FASTING 88 MG/DL (74-106); POTASSIUM SERUM 4.3 MMOL/L (3.5-5.1); SODIUM LEVEL 140 MMOL/L (136-145)
[2022-01-23] MEDS: PANTOPRAZOLE 40MG TAB (PROTONIX) PO SCH ×2 (07:45→21:26)
[2022-01-23] MEDS: ENOXAPARIN 40MG/0.4ML SYRINGE (J1650 PER 10MG) SC SCH (07:45)
[2022-01-23] MEDS: DOCUSATE SODIUM 100MG CAPSULE PO SCH ×2 (07:53→21:00)
[2022-01-23 08:00] VITALS: BP 104/64
[2022-01-23] MEDS: ACETAMINOPHEN TAB 650MG DOSE (2X325MG) PO PRN (11:57)
[2022-01-23 12:00] VITALS: BP 96/54
[2022-01-23] MEDS: oxyCODONE 5MG TAB PO PRN (15:59)
[2022-01-23 16:00] VITALS: BP 117/55
[2022-01-23 20:00] VITALS: BP 107/56
[2022-01-24] VITALS: BP 88/50
[2022-01-24] MEDS: ALBUTEROL SULFATE 2.5 MG/0.5 ML INH NEB SOLN NEB SCH ×3 (02:15→13:37)
[2022-01-24 04:00] VITALS: BP 82/48
[2022-01-24 05:30] VITALS: BP 106/51
[2022-01-24 05:44] LABS: BASO % 1.1 % (0.0-1.0); EOS # 0.2 10^3/uL (0.0-0.5); EOS % 5.1 % (0.0-3.0); HEMATOCRIT 35.6 % (36.0-47.0); HEMOGLOBIN 11.1 g/dl (12.0-15.5); LYMPH # 0.8 10^3/uL (1.5-5.0); LYMPH % 20.7 % (24.0-44.0); MEAN CORPUSCULAR HGB CONC 31.2 g/dl (32.0-36.5); MEAN CORPUSCULAR VOLUME 86.6 fl (80.0-96.0); MONO # 0.7 10^3/uL (0.0-0.8); MONO % 19.1 % (2.0-8.0); NEUTROPHILS % 53.7 % (36.0-66.0); PLATELET COUNT, AUTOMATED 182 10^3/uL (150-450); RED BLOOD COUNT 4.11 10^6/uL (4.00-5.40); WHITE BLOOD COUNT 3.7 10^3/uL (4.0-10.0)
[2022-01-24 06:03] LABS: BLOOD UREA NITROGEN 15 MG/DL (9-23); CALCIUM LEVEL 8.5 MG/DL (8.3-10.6); CARBON DIOXIDE LEVEL 24 MMOL/L (20-31); CHLORIDE LEVEL 107 MMOL/L (98-107); CREATININE FOR GFR 0.55 MG/DL (0.55-1.30); GLOMERULAR FILTRATION RATE > 60.0 (>45); GLUCOSE, FASTING 96 MG/DL (74-106); POTASSIUM SERUM 4.2 MMOL/L (3.5-5.1); SODIUM LEVEL 139 MMOL/L (136-145)
[2022-01-24] MEDS: DOCUSATE SODIUM 100MG CAPSULE PO SCH (07:31)
[2022-01-24] MEDS: PANTOPRAZOLE 40MG TAB (PROTONIX) PO SCH (07:32)
[2022-01-24] MEDS: ENOXAPARIN 40MG/0.4ML SYRINGE (J1650 PER 10MG) SC SCH (07:32)
[2022-01-24 08:26] VITALS: BP 103/54
[2022-01-24 16:00] VITALS: BP 101/55
[2022-01-24] MEDS ORDERED: ALB2.5NEB NEB (17:43)
[2022-01-24] MEDS ORDERED: ACET1TAB55 PO (17:43)
[2022-01-24] MEDS ORDERED: ALBU6.7H6 INH (18:08)
== END 2022-01-24 18:33 | disposition home or self-care (01) | DRG 143 ==
LOC: M IRPRO 08:50 → M PCU 16:30
PROVIDERS: ADMIT Internal Medicine Nephrology; ATTEND Family Medicine
PROC: 0W9B30Z Drainage of Left Pleural Cavity with Drainage Device, Percutaneous Approach (ICD-10-PCS; 2022-01-20)
PROC: 0BBG3ZX Excision of Left Upper Lung Lobe, Percutaneous Approach, Diagnostic (ICD-10-PCS; principal; 2022-01-20 09:30)
DX: J95.811 Postprocedural pneumothorax (principal); E43 Unspecified severe protein-calorie malnutrition; C34.12 Malignant neoplasm of upper lobe, left bronchus or lung; F17.210 Nicotine dependence, cigarettes, uncomplicated; F10.10 Alcohol abuse, uncomplicated; K21.9 Gastro-esophageal reflux disease without esophagitis; K64.9 Unspecified hemorrhoids; J30.9 Allergic rhinitis, unspecified; Y83.8 Other surgical procedures as the cause of abnormal reaction of the patient, or of later complication, without mention of misadventure at the time of the procedure; J95.812 Postprocedural air leak; J43.9 Emphysema, unspecified; Z68.1 Body mass index [BMI] 19.9 or less, adult; Z85.028 Personal history of other malignant neoplasm of stomach; Z92.21 Personal history of antineoplastic chemotherapy; Z90.49 Acquired absence of other specified parts of digestive tract; Z79.899 Other long term (current) drug therapy

== ENCOUNTER → 2022-01-31 | Outpatient (CLI) | payer BC ==
[~2022-01-31] MED LIST changes: +ACET1TAB55 PO; +ALB2.5NEB NEB; +ALBU6.7H6 INH; +VITMTA PO
== END ==
LOC: M ONCR 14:15
PROVIDERS: ATTEND General Practice
DX: C34.12 Malignant neoplasm of upper lobe, left bronchus or lung (principal); F17.210 Nicotine dependence, cigarettes, uncomplicated; Z79.51 Long term (current) use of inhaled steroids; Z79.899 Other long term (current) drug therapy; Z80.0 Family history of malignant neoplasm of digestive organs; Z80.8 Family history of malignant neoplasm of other organs or systems; Z85.028 Personal history of other malignant neoplasm of stomach; Z90.710 Acquired absence of both cervix and uterus; Z90.79 Acquired absence of other genital organ(s); Z92.21 Personal history of antineoplastic chemotherapy

== ENCOUNTER → 2022-02-04 | Outpatient (CLI) | payer BC | LOC: M RAD 11:23 | PROVIDERS: ATTEND Internal Medicine Pulmonary Disease | DX: Z87.09 Personal history of other diseases of the respiratory system (principal); Z95.828 Presence of other vascular implants and grafts ==

== ENCOUNTER 2022-02-14 10:14 | Outpatient (RCR) | payer BC ==
[~2022-02-14 10:14] MED LIST changes: +NYST-38 PO; -NYST50SS PO
== END 2022-02-15 ==
LOC: M ONCR 10:14
PROVIDERS: ATTEND General Practice
DX: C34.12 Malignant neoplasm of upper lobe, left bronchus or lung (principal)

== ENCOUNTER 2022-02-28 11:44 | Outpatient (RCR) | payer BC | END 2022-03-18 | LOC: M ONCR 11:44 | PROVIDERS: ATTEND General Practice | DX: C34.12 Malignant neoplasm of upper lobe, left bronchus or lung (principal) ==

== ENCOUNTER → 2022-03-04 | Outpatient (CLI) | payer BC | LOC: M LABSMTC 11:19 | PROVIDERS: ATTEND Anesthesiology | DX: Z01.812 Encounter for preprocedural laboratory examination (principal) ==

== ENCOUNTER 2022-03-06 13:24 | Day surgery (SDC) | payer BC ==
[~2022-03-06] VITALS: Ht 160 cm; Wt 38.5 kg
[2022-03-06] MEDS ORDERED: MIDAZOLAM INJ 2MG/2ML VIAL As Ordered ONE (14:02)
[2022-03-06] MEDS ORDERED: LIDOCAINE VISCOUS 2% SOLN 15ML UDC As Ordered ONE (14:02)
[2022-03-06] MEDS ORDERED: CETACAINE SPRAY 5GM As Ordered ONE (14:28)
[2022-03-06 15:15] VITALS: BP 134/61
[2022-03-06] MEDS ORDERED: MIDAZOLAM INJ 2MG/2ML VIAL IV PRN (15:30)
[2022-03-06] MEDS ORDERED: MIDAZOLAM INJ 2MG/2ML VIAL IV ONE (15:40)
== END 2022-03-06 15:20 | disposition home or self-care (01) ==
LOC: M OPP 13:24
PROVIDERS: ATTEND Internal Medicine Cardiovascular Disease
DX: D15.1 Benign neoplasm of heart (principal); I31.8 Other specified diseases of pericardium; I35.8 Other nonrheumatic aortic valve disorders; C80.1 Malignant (primary) neoplasm, unspecified

== ENCOUNTER → 2022-05-19 | Outpatient (CLI) | payer BC ==
[~2022-05-19] MED LIST changes: +ISOVUE-370 76% 100ML VIAL As Ordered ONE
== END ==
LOC: M RAD 07:50
PROVIDERS: ATTEND General Practice
DX: C34.12 Malignant neoplasm of upper lobe, left bronchus or lung (principal)
CPT/HCPCS: 71260; Q9967

== ENCOUNTER → 2022-05-29 | Outpatient (CLI) | payer BC ==
[~2022-05-29] MED LIST changes: -ISOVUE-370 76% 100ML VIAL As Ordered ONE
== END ==
LOC: M ONCR 11:26
PROVIDERS: ATTEND General Practice
DX: C34.12 Malignant neoplasm of upper lobe, left bronchus or lung (principal); C79.89 Secondary malignant neoplasm of other specified sites; R91.8 Other nonspecific abnormal finding of lung field; F17.210 Nicotine dependence, cigarettes, uncomplicated; Z79.899 Other long term (current) drug therapy; Z85.028 Personal history of other malignant neoplasm of stomach; Z92.3 Personal history of irradiation; Z98.890 Other specified postprocedural states

== ENCOUNTER → 2022-11-24 | Outpatient (CLI) | payer MEDICARE, BC ==
[~2022-11-24] MED LIST changes: +ISOVUE-370 76% 100ML VIAL As Ordered ONE; -POTA10CA33 PO; +POTA10CA60 PO
== END ==
LOC: M RAD 12:17
PROVIDERS: ATTEND Radiology Radiation Oncology
DX: C34.12 Malignant neoplasm of upper lobe, left bronchus or lung (principal)
CPT/HCPCS: 71260; Q9967

== ENCOUNTER → 2022-11-28 | Outpatient (CLI) | payer BC, MEDICARE ==
[~2022-11-28] MED LIST changes: -ISOVUE-370 76% 100ML VIAL As Ordered ONE
== END ==
LOC: M ONCR 11:31
PROVIDERS: ATTEND General Practice
DX: C34.12 Malignant neoplasm of upper lobe, left bronchus or lung (principal); F17.210 Nicotine dependence, cigarettes, uncomplicated; Z71.2 Person consulting for explanation of examination or test findings; Z85.028 Personal history of other malignant neoplasm of stomach; Z79.899 Other long term (current) drug therapy; Z90.49 Acquired absence of other specified parts of digestive tract; Z92.21 Personal history of antineoplastic chemotherapy; Z92.3 Personal history of irradiation

== ENCOUNTER → 2023-02-27 | Outpatient (CLI) | payer MEDICARE | LOC: M RAD 11:40 | PROVIDERS: ATTEND Surgery | DX: K40.91 Unilateral inguinal hernia, without obstruction or gangrene, recurrent (principal) ==

== ENCOUNTER → 2023-05-28 | Outpatient (CLI) | payer MEDICARE | LOC: M RAD 09:27 | PROVIDERS: ATTEND General Practice | DX: C34.12 Malignant neoplasm of upper lobe, left bronchus or lung (principal) ==

== ENCOUNTER → 2023-06-04 | Outpatient (CLI) | payer MEDICARE | LOC: M ONCR 10:46 | PROVIDERS: ATTEND General Practice | DX: C34.12 Malignant neoplasm of upper lobe, left bronchus or lung (principal); J84.10 Pulmonary fibrosis, unspecified; F17.210 Nicotine dependence, cigarettes, uncomplicated; Z71.2 Person consulting for explanation of examination or test findings; Z85.028 Personal history of other malignant neoplasm of stomach; Z79.899 Other long term (current) drug therapy; Z92.21 Personal history of antineoplastic chemotherapy; Z92.3 Personal history of irradiation ==

== ENCOUNTER → 2023-07-20 | Outpatient (CLI) | payer MEDICARE ==
[~2023-07-20] MED LIST changes: +ONDA-282 PO; -ONDA4TAB6 PO; -POTA10CA60 PO; +POTA10CA70 PO
== END ==
LOC: M PLAIMG 09:23
PROVIDERS: ATTEND Physician Assistant
DX: D15.1 Benign neoplasm of heart (principal)

== ENCOUNTER → 2023-08-27 | Outpatient (CLI) | payer MEDICARE | LOC: M RAD 11:11 | PROVIDERS: ATTEND General Practice | DX: C34.12 Malignant neoplasm of upper lobe, left bronchus or lung (principal); J93.9 Pneumothorax, unspecified; J43.9 Emphysema, unspecified; J47.9 Bronchiectasis, uncomplicated ==

== ENCOUNTER → 2023-09-04 | Outpatient (CLI) | payer MEDICARE | LOC: M ONCR 14:43 | PROVIDERS: ATTEND General Practice | DX: C34.12 Malignant neoplasm of upper lobe, left bronchus or lung (principal); J93.9 Pneumothorax, unspecified; F17.210 Nicotine dependence, cigarettes, uncomplicated; Z92.21 Personal history of antineoplastic chemotherapy; Z92.3 Personal history of irradiation; Z79.899 Other long term (current) drug therapy; Z85.028 Personal history of other malignant neoplasm of stomach ==

== ENCOUNTER → 2023-09-11 | Outpatient (CLI) | payer MEDICARE ==
[2023-09-11 13:32] LABS: CHOLESTEROL RISK RATIO 2.51 (<5); HDL CHOLESTEROL 71.9 MG/DL (>40); LDL CHOLESTEROL 82.5 MG/DL (<100); NON-HDL-C 109.1 MG/DL
== END ==
LOC: M LAB 12:25
PROVIDERS: ATTEND Family Medicine
DX: Z13.220 Encounter for screening for lipoid disorders (principal); Z79.899 Other long term (current) drug therapy

== ENCOUNTER → 2023-09-11 | Outpatient (CLI) | payer MEDICARE | LOC: M RAD 12:21 | PROVIDERS: ATTEND General Practice | DX: C34.12 Malignant neoplasm of upper lobe, left bronchus or lung (principal) ==

== ENCOUNTER → 2024-03-01 | Outpatient (CLI) | payer MEDICARE | LOC: M RAD 12:23 | PROVIDERS: ATTEND General Practice | DX: C34.12 Malignant neoplasm of upper lobe, left bronchus or lung (principal) ==

== ENCOUNTER → 2024-03-10 | Outpatient (CLI) | payer MEDICARE | LOC: M ONCR 13:35 | PROVIDERS: ATTEND General Practice | DX: C34.12 Malignant neoplasm of upper lobe, left bronchus or lung (principal); R91.1 Solitary pulmonary nodule; Z85.028 Personal history of other malignant neoplasm of stomach; F17.218 Nicotine dependence, cigarettes, with other nicotine-induced disorders; Z92.21 Personal history of antineoplastic chemotherapy; Z92.3 Personal history of irradiation; Z79.899 Other long term (current) drug therapy ==

== ENCOUNTER → 2024-04-13 | Outpatient (CLI) | payer MEDICARE | LOC: M WHC 14:01 | PROVIDERS: ATTEND Family Medicine | DX: Z12.31 Encounter for screening mammogram for malignant neoplasm of breast (principal) ==

== ENCOUNTER → 2024-05-30 | Outpatient (CLI) | payer MEDICARE | LOC: M PLARAD 09:50 | PROVIDERS: ATTEND General Practice | DX: C34.12 Malignant neoplasm of upper lobe, left bronchus or lung (principal); R91.1 Solitary pulmonary nodule | CPT/HCPCS: 78815; A9552 ==

== ENCOUNTER → 2024-05-30 | Outpatient (CLI) | payer MEDICARE | LOC: M RAD 07:36 | PROVIDERS: ATTEND General Practice | DX: C34.12 Malignant neoplasm of upper lobe, left bronchus or lung (principal); I70.0 Atherosclerosis of aorta; I25.10 Atherosclerotic heart disease of native coronary artery without angina pectoris; J44.9 Chronic obstructive pulmonary disease, unspecified ==

== ENCOUNTER → 2024-06-08 | Outpatient (CLI) | payer MEDICARE | LOC: M ONCR 12:38 | PROVIDERS: ATTEND General Practice | DX: Z08 Encounter for follow-up examination after completed treatment for malignant neoplasm (principal); Z85.118 Personal history of other malignant neoplasm of bronchus and lung; Z92.21 Personal history of antineoplastic chemotherapy; Z98.890 Other specified postprocedural states; Z85.028 Personal history of other malignant neoplasm of stomach; F17.218 Nicotine dependence, cigarettes, with other nicotine-induced disorders ==

== ENCOUNTER → 2024-12-05 | Outpatient (CLI) | payer MEDICARE | LOC: M PLAIMG 12:20 | PROVIDERS: ATTEND Internal Medicine Pulmonary Disease | DX: R91.8 Other nonspecific abnormal finding of lung field (principal); R91.1 Solitary pulmonary nodule ==

== ENCOUNTER → 2024-12-08 | Outpatient (CLI) | payer MEDICARE | LOC: M ONCR 12:45 | PROVIDERS: ATTEND General Practice | DX: C34.12 Malignant neoplasm of upper lobe, left bronchus or lung (principal); R63.6 Underweight; F17.210 Nicotine dependence, cigarettes, uncomplicated; Z79.899 Other long term (current) drug therapy; Z85.028 Personal history of other malignant neoplasm of stomach; Z92.21 Personal history of antineoplastic chemotherapy; Z92.3 Personal history of irradiation ==